=== PATIENT | male | born 1930 | race Caucasian/White ===

== ENCOUNTER 2017-10-08 02:05 | Inpatient (IN) | payer MEDICARE, OTHER ==
--- NOTE | 2017-10-08 02:35 | EDM.PDOC ---
ED HPI GENERAL MEDICAL PROBLEM - General Chief Complaint: General Stated Complaint: FEVER, FALL Time Seen by Provider: 10/08/17 02:08 Source of Information: Reports: Patient, EMS History Limitations: Reports: No Limitations - History of Present Illness INITIAL COMMENTS - FREE TEXT/NARRATIVE: Patient arrives via ambulance with weakness and fever. He told EMS that he had gotten out of bed and kind of slid to the floor but didn't fall. EMS noticed that he seemed very weak and quite warm. The patient lives with his in an assisted living in [place]. He isn't aware of having a fever previously. He felt chilled last evening and needed a sweater. He was telling about his heart in some details that sounded like confusion (eg. when he sleeps on one side he opens up his right ventricle and can tell that he needs to open up the other ventricle so he switches to lying on the other side) but otherwise doesn't display any evidence of confusion or disorientation. He takes Eliquis for A Fib. - Related Data Allergies Allergy/AdvReac Type Severity Reaction Status Date / Time No Known Drug Allergies Allergy Disorientat Verified 10/08/17 02:51 ion Home Meds: Home Meds Apixaban [Eliquis] 5 mg PO BID 10/08/17 [History] Aspirin [Adult Low Dose Aspirin EC] 81 mg PO BID 10/08/17 [History] Calcium Carb/D3/Mag AA Chelate [Coral Calcium Capsule] 1 tab PO BID 10/08/17 [ History] Cholecalciferol (Vitamin D3) [Vitamin D3] 1,000 mg PO DAILY 10/08/17 [History] Folic Acid 1 mg PO DAILY 10/08/17 [History] Furosemide [Lasix] 40 mg PO DAILY 10/08/17 [History] Metoprolol Succinate [Toprol XL] 50 mg PO DAILY 10/08/17 [History] Mv-Mn/FA/Vit K/Lycop/Lut/Zeaxa [Ocuvite Eye + Multi Tablet] 1 tab PO DAILY 10/08 [History] [place]-3 Fatty Acids [Maxepa] 1,000 mg PO DAILY 10/08/17 [History] Polyvinyl Alcohol/Povidone/Pf [Refresh Classic Eye Drops] 1 drop EARBOTH Q4HR PRN 10/08/17 [History] Potassium Chloride 20 mg PO DAILY 10/08/17 [History] Zinc 50 mg PO DAILY 10/08/17 [History] risperiDONE [Risperdal] 1 mg PO DAILY 10/08/17 [History] ED ROS GENERAL - Review of Systems Review Of Systems: See Below Constitutional: Reports: Fever, Chills, Weakness HEENT: Denies: Throat Pain, Vision Change Respiratory: Reports: Cough. Denies: Shortness of Breath Cardiovascular: Denies: Chest Pain, Lightheadedness, Syncope GI/Abdominal: Denies: Abdominal Pain, Diarrhea, Vomiting : Denies: Dysuria, Flank Pain Musculoskeletal: Reports: Joint Pain (knees sometimes) Skin: Denies: Cyanosis, Jaundice, Mottled, Pallor, Diaphoresis Neurological: Reports: Confusion (possibly). Denies: Dizziness, Headache, Seizure, Syncope, Trouble Speaking Psychiatric: Denies: Agitation, Anxiety ED EXAM, GENERAL - Physical Exam Exam: See Below Exam Limited By: No Limitations General Appearance: Alert, WD/WN, No Apparent Distress Eye Exam: Bilateral Eye: EOMI, Normal Inspection, PERRL Ears: Normal External Exam, Normal Canal, Hearing Grossly Normal, Normal TMs Nose: Normal Inspection, No Blood Throat/Mouth: Normal Inspection, Normal Lips, Normal Gums, Normal Oropharynx, Normal Voice, No Airway Compromise Head: Atraumatic, Normocephalic Neck: Normal Inspection, Supple, Non-Tender, Full Range of Motion. No: Carotid Bruit Respiratory/Chest: No Respiratory Distress, Decreased Breath Sounds (left base) , Crackles (bilat). No: Rhonchi, Wheezing, Stridor, Retractions Cardiovascular: Normal Peripheral Pulses, No Edema, No JVD, No Murmur, Irregularly Irregular Peripheral Pulses: 2+: Carotid (L), Carotid (R), Radial (L), Radial (R), Dorsalis Pedis (L), Dorsalis Pedis (R) GI/Abdominal: Normal Bowel Sounds, Soft, Non-Tender, No Organomegaly, No Distention Back Exam: No: CVA Tenderness (L), CVA Tenderness (R) Extremities: No: Normal Range of Motion (kind of stiff in knees and hips consistent with OA but PROM is pretty good with a little effort and tolerated well), Joint Swelling Neurological: Alert, Oriented, CN II-XII Intact, Normal Cognition (as we visited he seemed to be completely oriented and appropriate), No Motor/Sensory Deficits. No: Memory Loss Remote Events, Memory Loss Recent Events Psychiatric: Normal Affect, Normal Mood Skin Exam: Warm, Dry, Intact, Normal Color, No Rash Course - Vital Signs Last Recorded V/S: Last Vital Signs Temp 99.7 F 10/08/17 02:30 Pulse 95 10/08/17 02:30 Resp 25 H 10/08/17 02:30 BP 151/60 H 10/08/17 02:30 Pulse Ox 93 L 10/08/17 02:30 - Orders/Labs/Meds Orders: Active Orders 24 hr Category Date Time Status EKG Documentation Completion [RC] ASDIRECTED Care 10/08/17 02:41 Active CXR [Chest 2V] [CR] Stat Exams 10/08/17 02:40 Taken CULTURE BLOOD [BC] Stat Lab 10/08/17 02:41 Ordered CULTURE BLOOD [BC] Stat Lab 10/08/17 02:55 Received Blood Culture x2 Reflex Set [OM.PC] Stat Oth 10/08/17 02:40 Ordered EKG 12 Lead [EK] Routine Ther 10/08/17 02:40 Ordered Labs: Laboratory Tests 10/08/17 10/08/17 10/08/17 Range/Units 02:48 02:48 02:48 WBC 13.8 H (5.0-10.0) 10^3/uL RBC 4.89 (4.50-6.00) 10^6/uL Hgb 14.1 (13.0-17.0) g/dL Hct 44.9 (40.0-52.0) % MCV 91.9 (82.0-92.0) fL MCH 28.8 (27.0-31.0) pg MCHC 31.4 L (32.0-36.0) g/dL RDW 14.7 H (11.5-14.5) % Plt Count 113 L (150-300) 10^3/uL MPV 7.3 L (7.4-10.4) fL Neut % (Auto) 88.8 H (50.0-70.0) % Lymph % (Auto) 5.4 L (20.0-40.0) % [place] % (Auto) 4.8 (2.0-8.0) % Eos % (Auto) 1.0 (1.0-3.0) % Baso % (Auto) 0.0 (0.0-1.0) % Neut # (Auto) 12.3 H (2.5-7.0) 10^3/uL Lymph # (Auto) 0.7 L (1.0-4.0) 10^3/uL [place] # (Auto) 0.7 (0.1-0.8) 10^3/uL Eos # (Auto) 0.1 (0.1-0.3) 10^3/uL Baso # (Auto) 0.0 (0.0-0.1) 10^3/uL Sodium 133 L (136-145) mmol/L Potassium 4.1 (3.3-5.3) mmol/L Chloride 99 (98-115) mmol/L Carbon Dioxide 23.5 (21.0-32.0) mmol/L BUN 18 (6-25) mg/dL Creatinine 0.77 (0.51-1.17) mg/dL Est Cr Clr Drug Dosing 74.18 mL/min Estimated GFR (MDRD) > 60 mL/min Glucose 142 H (70-110) mg/dL Lactic Acid 1.4 (0.4-2.0) mmol/L Calcium 8.2 L (8.7-10.3) mg/dL - Re-Assessments/Exams Free Text/Narrative Re-Assessment/Exam: 10/08/17 04:07 WBC is 13.8 with 88% neuts. CXR shows infiltrates. Rad report indicates infiltrates in left lobe under "findings" which I noted on film, but under "impression" it says right lower lob infiltrate. I actually think he has bilobar pneumonia clinically. Discussed findings with patient and with Dr. Esposito who accepted for admission. Patient remained in stable condition throughout ER course. Departure - Departure Time of Disposition: 04:07 Disposition: Admitted As Inpatient 65 Condition: Good Clinical Impression: CAP (community acquired pneumonia) Qualifiers: Laterality: unspecified laterality Qualified Code(s): J18.9 - Pneumonia, unspecified organism - Discharge Information Forms: ED Department Discharge - My Orders Last 24 Hours: My Active Orders 10/08/17 02:40 CXR [Chest 2V] [CR] Stat Blood Culture x2 Reflex Set [OM.PC] Stat EKG 12 Lead [EK] Routine 10/08/17 02:41 EKG Documentation Completion [RC] ASDIRECTED CULTURE BLOOD [BC] Stat 10/08/17 02:55 CULTURE BLOOD [BC] Stat - Assessment/Plan Last 24 Hours: My Active Orders 10/08/17 02:40 CXR [Chest 2V] [CR] Stat Blood Culture x2 Reflex Set [OM.PC] Stat EKG 12 Lead [EK] Routine 10/08/17 02:41 EKG Documentation Completion [RC] ASDIRECTED CULTURE BLOOD [BC] Stat 10/08/17 02:55 CULTURE BLOOD [BC] Stat
[2017-10-08 03:21] LABS: CHLORIDE,CL 99 mmol/L (98-115); SODIUM,NA 133 mmol/L (136-145)
[2017-10-08] MEDS ORDERED: Levofloxacin/Dextrose 5%-Water 250 MG in Premix Bag 1 BAG IV ONE (04:00)
[2017-10-08] MEDS ORDERED: Levofloxacin/Dextrose 5%-Water 500 MG in Premix Bag 1 BAG IV ONE (04:00)
[2017-10-08] MEDS ORDERED: Acetaminophen 325 MG Tab PO PRN (04:06)
[2017-10-08] MEDS: Levofloxacin/Dextrose 5%-Water 250 MG in Premix Bag 1 BAG IV SCH (04:50)
[2017-10-08] MEDS: Levofloxacin/Dextrose 5%-Water 500 MG in Premix Bag 1 BAG IV SCH (06:07)
--- NOTE | 2017-10-08 10:39 | PCM.HP ---
H&P History of Present Illness - General Date of Service: 10/08/17 Admit Problem/Dx: Admission Diagnosis/Problem Admission Diagnosis/Problem CAP (community acquired pneumonia) due to MSSA ( methicillin sensitive Staphylococcus aureus) Source of Information: Patient History Limitations: Reports: No Limitations - History of Present Illness Initial Comments - Free Text/Narative: This elderly patient was brought by ambulance from the assisted living facility in the morning not recorded. He seemed to be very weak, warm. Patient does live with his in the assisted living center at [place]. He was having a low- grade temperature and was confused and had a near falling episode. He is taking eloquence for atrial fibrillation. Onset of Symptoms: Reports: Other (Symptoms started yesterday.) Duration of Symptoms: Reports: Day(s): Location: Reports: Chest (Reason complaint of cough and also generalized weakness.) Generalized Pain Score (Numeric/FACES): 5 - Related Data Allergies/Adverse Reactions: Allergies Allergy/AdvReac Type Severity Reaction Status Date / Time No Known Drug Allergies Allergy Disorientat Verified 10/08/17 02:51 ion Home Medications: Home Meds Apixaban [Eliquis] 5 mg PO BID 10/08/17 [History] Aspirin [Adult Low Dose Aspirin EC] 81 mg PO BID 10/08/17 [History] Calcium Carb/D3/Mag AA Chelate [Coral Calcium Capsule] 1 tab PO BID 10/08/17 [ History] Cholecalciferol (Vitamin D3) [Vitamin D3] 1,000 mg PO DAILY 10/08/17 [History] Folic Acid 1 mg PO DAILY 10/08/17 [History] Furosemide [Lasix] 40 mg PO DAILY 10/08/17 [History] Metoprolol Succinate [Toprol XL] 50 mg PO DAILY 10/08/17 [History] Mv-Mn/FA/Vit K/Lycop/Lut/Zeaxa [Ocuvite Eye + Multi Tablet] 1 tab PO DAILY 10/08 [History] [place]-3 Fatty Acids [Maxepa] 1,000 mg PO DAILY 10/08/17 [History] Polyvinyl Alcohol/Povidone/Pf [Refresh Classic Eye Drops] 1 drop EARBOTH Q4HR PRN 10/08/17 [History] Potassium Chloride 20 mg PO DAILY 10/08/17 [History] Zinc 50 mg PO DAILY 10/08/17 [History] risperiDONE [Risperdal] 1 mg PO BEDTIME 10/08/17 [History] Past Medical History HEENT History: Reports: None, Hard of Hearing, Impaired Vision, Macular Degeneration Cardiovascular History: Reports: Afib, Heart Failure, Hypertension Respiratory History: Reports: COPD, Pneumonia, Recurrent, Other (See Below) ( Complains of coughing and wheezing.) Other Respiratory History: lesion on his right lower lobe, benign Gastrointestinal History: Reports: None Genitourinary History: Reports: Prostate Disorder Musculoskeletal History: Reports: Arthritis, Other (See Below) (Complains of generalized weakness and near falls.) Neurological History: Reports: None Psychiatric History: Reports: Addiction, Anxiety Endocrine/Metabolic History: Reports: None, Vitamin D Deficiency Hematologic History: Reports: None Oncologic (Cancer) History: Reports: None, Prostate - Past Surgical History HEENT Surgical History: Reports: Cataract Surgery, Other (See Below) Other HEENT Surgeries/Procedures: macular degeneration injections to both eyes Male Surgical History: Reports: Prostate Biopsy Social & Family History - Tobacco Use Smoking Status *Q: Former Smoker Used Tobacco, but Quit: Yes Second Hand Smoke Exposure: No - Caffeine Use Caffeine Use: Reports: None, Coffee (Drinks one or 2 cups of coffee daily.) - Recreational Drug Use Recreational Drug Use: No H&P Review of Systems - Review of Systems: Review Of Systems: ROS reveals no pertinent complaints other than HPI. General: Reports: Fever (Patient has fever and chills.), Chills, Weakness HEENT: Reports: No Symptoms Pulmonary: Reports: Shortness of Breath, Wheezing (Complaints of shortness of breath, wheezing and cough.) Cardiovascular: Reports: No Symptoms Gastrointestinal: Reports: No Symptoms Genitourinary: Reports: No Symptoms Musculoskeletal: Reports: Other (Complaints of weakness. Question of falls.) Skin: Reports: No Symptoms Psychiatric: Reports: No Symptoms Neurological: Reports: No Symptoms Hematologic/Lymphatic: Reports: No Symptoms Immunologic: Reports: No Symptoms Exam - Exam Exam: See Below - Vital Signs Vital Signs: Last Vital Signs Temp 99.6 F 10/08/17 06:42 Pulse 95 10/08/17 06:42 Resp 20 10/08/17 06:42 BP 130/49 L 10/08/17 06:42 Pulse Ox 95 10/08/17 06:42 Weight: 208 lb - Exam General: Alert HEENT: PERRLA, Hearing Intact, Mucosa Moist & [place], Nares Patent, Normal Nasal Septum, Posterior Pharynx Clear, Conjunctiva Clear, EOMI, EACs Clear, TMs Clear Neck: Supple, Trachea Midline, 2 Lungs: Rales Cardiovascular: Irregular Rhythm GI/Abdominal Exam: Normal Bowel Sounds, Soft, Non-Tender, No Organomegaly, No Distention, No Abnormal Bruit, No Mass, Pelvis Stable Back Exam: Normal Inspection, Full Range of Motion, NT Extremities: Normal Inspection, Normal Range of Motion, Non-Tender, No Pedal Edema, Normal Capillary Refill Skin: Warm, Dry, Intact Neurological: Cranial Nerves Intact, Reflexes Equal Bilateral Neuro Extensive - Mental Status: Alert, Oriented x3, Normal Mood/Affect, Normal Cognition - Patient Data Result Diagrams: 10/08/17 02:48 10/08/17 02:48 *Q Meaningful Use (ADM) - VTE *Q VTE Criteria *Q: - Stroke *Q Stroke Criteria *Q: - AMI *Q AMI Criteria *Q: - Problem List (1) Atrial fibrillation SNOMED Code(s): 83191219 ICD Code: I48.91 - UNSPECIFIED ATRIAL FIBRILLATION Status: Acute Current Visit: Yes (2) Sarcoidosis SNOMED Code(s): 93281584 ICD Code: D86.9 - SARCOIDOSIS, UNSPECIFIED Status: Acute Current Visit: Yes (3) Hypertension SNOMED Code(s): 84756252 ICD Code: I10 - ESSENTIAL (PRIMARY) HYPERTENSION Status: Acute Current Visit: Yes (4) Bladder carcinoma SNOMED Code(s): 258785212 ICD Code: C67.9 - MALIGNANT NEOPLASM OF BLADDER, UNSPECIFIED Status: Acute Current Visit: Yes (5) CAP (community acquired pneumonia) SNOMED Code(s): 006378949 ICD Code: J18.9 - PNEUMONIA, UNSPECIFIED ORGANISM Status: Acute Current Visit: Yes Qualifiers: Laterality: unspecified laterality Qualified Code(s): J18.9 - Pneumonia, unspecified organism Problem List Initiated/Reviewed/Updated: Yes Orders Last 24hrs: Active Orders 24 hr Category Date Time Status Oxygen Therapy [RC] PRN Care 10/08/17 04:06 Active Up With Assistance [RC] ASDIRECTED Care 10/08/17 04:06 Active VTE/DVT Education [RC] PER UNIT ROUTINE Care 10/08/17 04:06 Active Vital Signs [RC] 0300,0700,1100,1500,1900,2300 Care 10/08/17 04:06 Active Regular Diet [DIET] Diet 10/08/17 Breakfast Active Acetaminophen [Tylenol] Med 10/08/17 04:06 Active 650 mg PO Q4H PRN Levofloxacin/Dextrose 5%-Water [Levaquin in D5W 250 MG/ Med 10/08/17 04:30 Active 50 ML] 250 mg Premix Bag 1 bag IV Q24H Levofloxacin/Dextrose 5%-Water [Levaquin in D5W 500 MG/ Med 10/08/17 04:30 Active 100 ML] 500 mg Premix Bag 1 bag IV Q24H Resuscitation Status Routine Resus Stat 10/08/17 04:04 Ordered Medication Orders Acetaminophen (Tylenol) 650 mg PO Q4H PRN PRN Reason: Pain (Mild 1-3)/fever Last Admin: 10/08/17 08:18 Dose: 650 mg Levofloxacin/Dextrose 250 mg/ (Premix) 50 mls @ 50 mls/hr IV Q24H [facility] Last Admin: 10/08/17 04:50 Dose: 50 mls/hr Levofloxacin/Dextrose 500 mg/ (Premix) 100 mls @ 100 mls/hr IV Q24H [facility] Last Admin: 10/08/17 06:07 Dose: 100 mls/hr Assessment/Plan Comment:: Committee quite pneumonia: Patient will be treated with levofloxacin as ordered. Oxygen is necessary. Cough medication and anti-ptosis as necessary. Hypertension: Stable. Continue metoprolol. Sarcoidosis: Stable. Bladder carcinoma: Stable. Atrial fibrillation stable. Continue request. Abdominal aortic aneurysm stable. Continue to monitor. Macular degeneration: Stable. Generalized arthritis stable.
[2017-10-08] MEDS: Lutein/Minerals/Vitamins A, C & E Tab PO SCH (12:51)
[2017-10-08] MEDS: Aspirin 81 MG Tab.EC PO SCH (12:51)
[2017-10-08] MEDS: Folic Acid 1 MG Tab PO SCH (12:52)
[2017-10-08] MEDS: Cholecalciferol (Vitamin D3) 1,000 Unit Tab PO SCH (12:52)
[2017-10-08] MEDS: Zinc (Zinc Gluconate) 50 MG Tab PO SCH (12:52)
[2017-10-08] MEDS: Calcium Citrate/Vitamin D3 315 MG-250 Unit Tab PO SCH ×2 (12:52→17:10)
[2017-10-08] MEDS: Fish Oil/Omega-3 Fatty Acids 1 Gm Cap PO SCH (12:52)
[2017-10-08] MEDS: Apixaban 5 MG Tab PO SCH ×2 (12:52→20:52)
[2017-10-08] MEDS: Metoprolol Succinate 50 MG Tab.ER PO SCH (12:54)
[2017-10-08] MEDS: REFRESH EYEBOTH PRN (17:45)
[2017-10-08] MEDS: risperiDONE 1 MG Tab PO SCH (20:52)
[2017-10-09] MEDS: Levofloxacin/Dextrose 5%-Water 250 MG in Premix Bag 1 BAG IV SCH (04:16)
[2017-10-09] MEDS: Levofloxacin/Dextrose 5%-Water 500 MG in Premix Bag 1 BAG IV SCH (05:30)
[2017-10-09] MEDS: Calcium Citrate/Vitamin D3 315 MG-250 Unit Tab PO SCH ×2 (09:01→17:56)
[2017-10-09] MEDS: Lutein/Minerals/Vitamins A, C & E Tab PO SCH (09:01)
[2017-10-09] MEDS: Metoprolol Succinate 50 MG Tab.ER PO SCH (09:01)
[2017-10-09] MEDS: Aspirin 81 MG Tab.EC PO SCH (09:01)
[2017-10-09] MEDS: Folic Acid 1 MG Tab PO SCH (09:01)
[2017-10-09] MEDS: Zinc (Zinc Gluconate) 50 MG Tab PO SCH (09:01)
[2017-10-09] MEDS: Cholecalciferol (Vitamin D3) 1,000 Unit Tab PO SCH (09:01)
[2017-10-09] MEDS: Apixaban 5 MG Tab PO SCH (09:01)
[2017-10-09] MEDS: Fish Oil/Omega-3 Fatty Acids 1 Gm Cap PO SCH (09:01)
--- NOTE | 2017-10-09 10:17 | PCM.PN ---
- General Info Date of Service: 10/09/17 Functional Status: Reports: Pain Controlled, Tolerating Diet, Ambulating. Denies: New Symptoms - Review of Systems General: Reports: Weakness HEENT: Reports: No Symptoms Pulmonary: Reports: Cough. Denies: Shortness of Breath, Sputum Cardiovascular: Denies: Orthopnea, PND, Edema Gastrointestinal: Reports: No Symptoms Genitourinary: Reports: No Symptoms Musculoskeletal: Reports: No Symptoms Skin: Reports: No Symptoms Neurological: Reports: No Symptoms, Difficulty Walking (uses walker with assistance) Psychiatric: Reports: No Symptoms - Patient Data Vitals - Most Recent: Last Vital Signs Temp 98 F 10/09/17 05:38 Pulse 102 H 10/09/17 09:01 Resp 24 H 10/09/17 05:38 BP 117/57 L 10/09/17 09:01 Pulse Ox 94 L 10/09/17 05:38 Weight - Most Recent: 208 lb I&O - Last 24 Hours: Intake & Output 10/08/17 10/09/17 10/09/17 22:59 06:59 14:59 Intake Total 810 100 Output Total 500 650 Balance 310 -550 Med Orders - Current: Current Medications Acetaminophen (Tylenol) 650 mg PO Q4H PRN PRN Reason: Pain (Mild 1-3)/fever Last Admin: 10/08/17 08:18 Dose: 650 mg Apixaban (Eliquis) 5 mg PO BID@0800,1700 [facility] Last Admin: 10/09/17 09:01 Dose: 5 mg Aspirin (Halfprin) 81 mg PO DAILY [facility] Last Admin: 10/09/17 09:01 Dose: 81 mg Calcium Citrate (Calcium Citrate + D) 1 tab PO BIDMEALS [facility] Last Admin: 10/09/17 09:01 Dose: 1 tab Cholecalciferol (Vitamin D3) 1,000 units PO DAILY [facility] Last Admin: 10/09/17 09:01 Dose: 1,000 units Fish Oil (Fish Oil) 1 gm PO DAILY [facility] Last Admin: 10/09/17 09:01 Dose: 1 gm Folic Acid (Folic Acid) 1 mg PO DAILY [facility] Last Admin: 10/09/17 09:01 Dose: 1 mg Levofloxacin/Dextrose 250 mg/ (Premix) 50 mls @ 50 mls/hr IV Q24H [facility] Last Admin: 10/09/17 04:16 Dose: 50 mls/hr Levofloxacin/Dextrose 500 mg/ (Premix) 100 mls @ 100 mls/hr IV Q24H [facility] Last Admin: 10/09/17 05:30 Dose: 100 mls/hr Metoprolol Succinate (Toprol Xl) 50 mg PO DAILY [facility] Last Admin: 10/09/17 09:01 Dose: 50 mg Multivitamins/Minerals (Ocuvite) 1 each PO DAILY [facility] Last Admin: 10/09/17 09:01 Dose: 1 each Ptom Refresh (Ophth Soln) 1 each EYEBOTH Q4H PRN PRN Reason: Dry Eyes Last Admin: 10/08/17 17:45 Dose: 1 each Risperidone (Risperidal) 1 mg PO BEDTIME [facility] Last Admin: 10/08/17 20:52 Dose: 1 mg Zinc Gluconate (Zinc) 50 mg PO DAILY [facility] Last Admin: 10/09/17 09:01 Dose: 50 mg Discontinued Medications Levofloxacin/Dextrose 500 mg/ (Premix) 100 mls @ 100 mls/hr IV ONETIME ONE Stop: 10/08/17 04:59 Last Admin: 10/08/17 07:25 Dose: Not Given Levofloxacin/Dextrose 250 mg/ (Premix) 50 mls @ 50 mls/hr IV ONETIME ONE Stop: 10/08/17 04:59 Last Admin: 10/08/17 07:25 Dose: Not Given - Exam Quality Assessment: No: Supplemental Oxygen General: Alert, Oriented, Cooperative, No Acute Distress Neck: No JVD Lungs: Normal Respiratory Effort, Rhonchi Cardiovascular: Irregular Rhythm. No: Tachycardia GI/Abdominal Exam: Soft Back Exam: No: CVA Tenderness (L), CVA Tenderness (R) Extremities: No: Pedal Edema Neurological: No New Focal Deficit Psy/Mental Status: Alert, Normal Affect, Normal Mood - Problem List Review Problem List Initiated/Reviewed/Updated: Yes - My Orders Last 24 Hours: My Active Orders 10/09/17 03:36 Antiembolic Devices [RC] 0900,2200 DES Hose [Antiembolic Hose] [OM.PC] Routine - Plan Plan:: Primary impression Pneumonia, RLL, CAP, qSOFA 1/3, Neutrophilia, MAP good, O2 good, continue with Levaquin however add azithromycin, BC surveillance, ICS, in chair and upright. Atrial fibrillation, chronic, CVR, patient has not been taking his Eliquis at home for several weeks due to cost and he is refusing all NOVA and coumadin. Will Stop Eliquis, [id number] Score 4-high risk. Explained to patient ASA alone not adequate coverage however he fully understands risks versus benefits. Hyponatremia, mild, CHF however no fluid overload, euvolemic, no fluid restriction for now HFpEF; Diastolic, recent dx, ECHO 06/13 with markedly dilated left atrima, no active sx now, CXR moderate cardiomegaly, On lasix at home, Currently at his home dry weight between 205-210. no shortness of breath or edema, negative JVD. Will initiate low-dose SEEMA inhibitor. monitor carefully as we may have to initiate low-dose diuretic Immunization status; completed pneumococcal vaccine Secondary impression Hypertension: Stable. Continue metoprolol, however in light of diastolic heart failure will start low-dose SEEMA inhibitor, creatinine normal Sarcoidosis: Stable. Bladder carcinoma: Stable. Abdominal aortic aneurysm stable. Continue to monitor. Macular degeneration: Stable. Generalized arthritis stable. Overall plan/disposition/discharge planning patient benefiting from ongoing acute care stay, add azithromycin, Add SEEMA inhibitor, ICS, TEDS, discontinue Eliquis,
[2017-10-09] MEDS: Azithromycin 500 MG in Sodium Chloride 0.9% 250 ML IV SCH (11:48)
[2017-10-09] MEDS: REFRESH EYEBOTH PRN (14:19)
[2017-10-09] MEDS: risperiDONE 1 MG Tab PO SCH (20:38)
[2017-10-10] MEDS: Levofloxacin/Dextrose 5%-Water 250 MG in Premix Bag 1 BAG IV SCH (04:31)
[2017-10-10] MEDS: Levofloxacin/Dextrose 5%-Water 500 MG in Premix Bag 1 BAG IV SCH (05:35)
[2017-10-10] MEDS: REFRESH EYEBOTH PRN ×2 (07:40→20:34)
[2017-10-10 08:24] LABS: CHLORIDE,CL 100 mmol/L (98-115); SODIUM,NA 132 mmol/L (136-145)
[2017-10-10] MEDS: Lutein/Minerals/Vitamins A, C & E Tab PO SCH (08:30)
[2017-10-10] MEDS: Fish Oil/Omega-3 Fatty Acids 1 Gm Cap PO SCH (08:30)
[2017-10-10] MEDS: Calcium Citrate/Vitamin D3 315 MG-250 Unit Tab PO SCH ×2 (08:30→18:02)
[2017-10-10] MEDS: Aspirin 81 MG Tab.EC PO SCH (08:31)
[2017-10-10] MEDS: Folic Acid 1 MG Tab PO SCH (08:31)
[2017-10-10] MEDS: Metoprolol Succinate 50 MG Tab.ER PO SCH (08:31)
[2017-10-10] MEDS: Cholecalciferol (Vitamin D3) 1,000 Unit Tab PO SCH (08:31)
[2017-10-10] MEDS: Zinc (Zinc Gluconate) 50 MG Tab PO SCH (08:32)
[2017-10-10] MEDS: Lisinopril 5 MG Tab PO SCH (08:34)
[2017-10-10] MEDS ORDERED: Furosemide 20 MG Tab PO ONE (10:25)
--- NOTE | 2017-10-10 10:26 | PCM.PN ---
- General Info Date of Service: 10/10/17 Subjective Update: Patient is feeling much better, no shortness of breath, slept well throughout the night without extra pillows, no PND, no orthopnea. No nausea vomiting or night sweats. Denies cough. Nurses are reporting tremendous improvement since admission ambulates with walker. Functional Status: Reports: Pain Controlled, Tolerating Diet, Ambulating ( Ambulating with walker with some assistance), Incentive Spirometry. Denies: New Symptoms - Review of Systems General: Reports: Weakness, Appetite. Denies: Fever, Malaise, Chills, Night Sweats HEENT: Reports: No Symptoms Pulmonary: Reports: No Symptoms Cardiovascular: Denies: Chest Pain, Palpitations, Orthopnea, PND, Edema Gastrointestinal: Reports: Constipation Genitourinary: Reports: No Symptoms Musculoskeletal: Reports: No Symptoms Skin: Reports: No Symptoms Neurological: Reports: Pre-Existing Deficit, Difficulty Walking (Uses walker here however does not use walker at home). Denies: Confusion Psychiatric: Reports: No Symptoms - Patient Data Vitals - Most Recent: Last Vital Signs Temp 97.9 F 10/10/17 06:04 Pulse 92 10/10/17 08:31 Resp 26 H 10/10/17 02:53 BP 133/80 10/10/17 08:34 Pulse Ox 92 L 10/10/17 06:04 Weight - Most Recent: 208 lb I&O - Last 24 Hours: Intake & Output 10/09/17 10/10/17 10/10/17 22:59 06:59 14:59 Intake Total 425 200 Output Total 950 400 Balance -525 -200 Lab Results Last 24 Hours: Laboratory Results - last 24 hr 10/10/17 10/10/17 Range/Units 07:10 07:10 WBC 9.1 (5.0-10.0) 10^3/uL RBC 4.44 L (4.50-6.00) 10^6/uL Hgb 13.0 (13.0-17.0) g/dL Hct 40.8 (40.0-52.0) % MCV 91.8 (82.0-92.0) fL MCH 29.3 (27.0-31.0) pg MCHC 31.9 L (32.0-36.0) g/dL RDW 14.3 (11.5-14.5) % Plt Count 95 L (150-300) 10^3/uL MPV 7.7 (7.4-10.4) fL Neut % (Auto) 79.7 H (50.0-70.0) % Lymph % (Auto) 11.9 L (20.0-40.0) % Dunn % (Auto) 6.5 (2.0-8.0) % Eos % (Auto) 1.3 (1.0-3.0) % Baso % (Auto) 0.6 (0.0-1.0) % Neut # (Auto) 7.2 H (2.5-7.0) 10^3/uL Lymph # (Auto) 1.1 (1.0-4.0) 10^3/uL Dunn # (Auto) 0.6 (0.1-0.8) 10^3/uL Eos # (Auto) 0.1 (0.1-0.3) 10^3/uL Baso # (Auto) 0.1 (0.0-0.1) 10^3/uL Sodium 132 L (136-145) mmol/L Potassium 4.1 (3.3-5.3) mmol/L Chloride 100 (98-115) mmol/L Carbon Dioxide 26.9 (21.0-32.0) mmol/L BUN 16 (6-25) mg/dL Creatinine 0.77 (0.51-1.17) mg/dL Est Cr Clr Drug Dosing 69.79 mL/min Estimated GFR (MDRD) > 60 mL/min Glucose 102 (70-110) mg/dL Calcium 8.0 L (8.7-10.3) mg/dL Med Orders - Current: Current Medications Acetaminophen (Tylenol) 650 mg PO Q4H PRN PRN Reason: Pain (Mild 1-3)/fever Last Admin: 10/08/17 08:18 Dose: 650 mg Aspirin (Halfprin) 81 mg PO DAILY [facility] Last Admin: 10/10/17 08:31 Dose: 81 mg Calcium Citrate (Calcium Citrate + D) 1 tab PO BIDMEALS [facility] Last Admin: 10/10/17 08:30 Dose: 1 tab Cholecalciferol (Vitamin D3) 1,000 units PO DAILY [facility] Last Admin: 10/10/17 08:31 Dose: 1,000 units Fish Oil (Fish Oil) 1 gm PO DAILY [facility] Last Admin: 10/10/17 08:30 Dose: 1 gm Folic Acid (Folic Acid) 1 mg PO DAILY [facility] Last Admin: 10/10/17 08:31 Dose: 1 mg Levofloxacin/Dextrose 250 mg/ (Premix) 50 mls @ 50 mls/hr IV Q24H [facility] Last Admin: 10/10/17 04:31 Dose: 50 mls/hr Levofloxacin/Dextrose 500 mg/ (Premix) 100 mls @ 100 mls/hr IV Q24H [facility] Last Admin: 10/10/17 05:35 Dose: 100 mls/hr Azithromycin 500 mg/ Sodium (Chloride) 250 mls @ 250 mls/hr IV Q24H [facility] Last Admin: 10/09/17 11:48 Dose: 250 mls/hr Lisinopril (Prinivil) 5 mg PO DAILY [facility] Last Admin: 10/10/17 08:34 Dose: 5 mg Metoprolol Succinate (Toprol Xl) 50 mg PO DAILY [facility] Last Admin: 10/10/17 08:31 Dose: 50 mg Multivitamins/Minerals (Ocuvite) 1 each PO DAILY [facility] Last Admin: 10/10/17 08:30 Dose: 1 each Ptom Refresh (Ophth Soln) 1 each EYEBOTH Q4H PRN PRN Reason: Dry Eyes Last Admin: 10/10/17 07:40 Dose: 1 each Risperidone (Risperidal) 1 mg PO BEDTIME [facility] Last Admin: 10/09/17 20:38 Dose: 1 mg Zinc Gluconate (Zinc) 50 mg PO DAILY [facility] Last Admin: 10/10/17 08:32 Dose: 50 mg Discontinued Medications Apixaban (Eliquis) 5 mg PO BID@0800,1700 [facility] Last Admin: 10/09/17 09:01 Dose: 5 mg Levofloxacin/Dextrose 500 mg/ (Premix) 100 mls @ 100 mls/hr IV ONETIME ONE Stop: 10/08/17 04:59 Last Admin: 10/08/17 07:25 Dose: Not Given Levofloxacin/Dextrose 250 mg/ (Premix) 50 mls @ 50 mls/hr IV ONETIME ONE Stop: 10/08/17 04:59 Last Admin: 10/08/17 07:25 Dose: Not Given - Exam Quality Assessment: No: Supplemental Oxygen General: Alert, Oriented, Cooperative. No: No Acute Distress Neck: No JVD Lungs: Crackles (Crackles right base, patient states chronic), Rales. No: Decreased Breath Sounds, Rhonchi, Rub Cardiovascular: Regular Rate, Irregular Rhythm GI/Abdominal Exam: Soft (Male) Exam: Deferred Extremities: No Pedal Edema (DES stockings) Peripheral Pulses: 2+: Radial (L), Radial (R) Skin: Warm, Dry, Intact Neurological: No New Focal Deficit Psy/Mental Status: Alert, Normal Affect, Normal Mood - Problem List Review Problem List Initiated/Reviewed/Updated: Yes - My Orders Last 24 Hours: My Active Orders 10/09/17 10:33 Incentive Spirometry [RT Incentive Spirometry] [RC] ASDIRECTED 10/09/17 10:35 Antiembolic Devices [RC] 0900,2100 DES Hose Substitution [Sequential Compression Device] [OM.PC] Routine 10/09/17 11:00 Azithromycin [Zithromax] 500 mg Sodium Chloride 0.9% [Normal Saline] 250 ml IV Q24H 10/10/17 09:00 Lisinopril [Prinivil] 5 mg PO DAILY - Plan Plan:: Primary impression Update today: Patient is feeling much better, no shortness of breath, slept well throughout the night without extra pillows, no PND, no orthopnea. No nausea vomiting or night sweats. Denies cough. Nurses are reporting tremendous improvement since admission ambulates with walker. Denies use a walker at home Primary impression Pneumonia, RLL, CAP, clinically improving, no fevers or shortness of breath, qSOFA 0/3, Neutrophilia resolving, MAP good, O2 good, continue with Levaquin, added add azithromycin yesterday, BC surveillance, ICS, in chair and upright. Atrial fibrillation, chronic, CVR, patient has not been taking his Eliquis at home for several weeks due to cost and he is refusing all NOVA and coumadin. This was discontinued yesterday. [id number] Score 4-high risk. Explained to patient ASA alone not adequate coverage however he fully understands risks versus benefits, he will go home on monotherapy aspirin Hyponatremia, mild, CHF however no fluid overload, euvolemic, no fluid restriction for now HFpEF; Diastolic, recent dx, ECHO 06/13 with markedly dilated left atrima, no active sx now, CXR moderate cardiomegaly, On lasix at home, Currently at his home dry weight between 205-210. no shortness of breath or edema, negative JVD. Tolerating initial low-dose SEEMA inhibitor-should increase every 2 weeks to maximum tolerable levels. monitor carefully as we may have to initiate low- dose diuretic Immunization status; completed pneumococcal vaccine Secondary impression Hypertension: Stable. Continue metoprolol, however in light of diastolic heart failure will start low-dose SEEMA inhibitor, creatinine normal Sarcoidosis: Stable. Bladder carcinoma: Stable. Abdominal aortic aneurysm stable. Continue to monitor. Macular degeneration: Stable. Generalized arthritis stable. Overall plan/disposition/discharge planning Physical therapy evaluated patient and due to weakness he will qualify for residential. Likely will be discharged from acute care tomorrow at [facility] to receive physical therapy at correction. New meds this hospital admission including SEEMA inhibitor, recommend increasing every couple weeks to maximal tolerable levels.
[2017-10-10] MEDS ORDERED: PSYLLIUM HUSK PO PRN (10:36)
[2017-10-10] MEDS: Azithromycin 500 MG in Sodium Chloride 0.9% 250 ML IV SCH (11:07)
[2017-10-10] MEDS: risperiDONE 1 MG Tab PO SCH (20:34)
[2017-10-11] MEDS: Levofloxacin/Dextrose 5%-Water 250 MG in Premix Bag 1 BAG IV SCH (04:32)
[2017-10-11] MEDS: Levofloxacin/Dextrose 5%-Water 500 MG in Premix Bag 1 BAG IV SCH (05:35)
[2017-10-11 07:48] LABS: CHLORIDE,CL 101 mmol/L (98-115); SODIUM,NA 135 mmol/L (136-145)
[2017-10-11] MEDS: Fish Oil/Omega-3 Fatty Acids 1 Gm Cap PO SCH (08:33)
[2017-10-11] MEDS: REFRESH EYEBOTH PRN (08:33)
[2017-10-11] MEDS: Zinc (Zinc Gluconate) 50 MG Tab PO SCH (08:34)
[2017-10-11] MEDS: Lutein/Minerals/Vitamins A, C & E Tab PO SCH (08:34)
[2017-10-11] MEDS: Calcium Citrate/Vitamin D3 315 MG-250 Unit Tab PO SCH (08:34)
[2017-10-11] MEDS: Cholecalciferol (Vitamin D3) 1,000 Unit Tab PO SCH (08:34)
[2017-10-11] MEDS: Metoprolol Succinate 50 MG Tab.ER PO SCH (08:35)
[2017-10-11] MEDS: Aspirin 81 MG Tab.EC PO SCH (08:35)
[2017-10-11] MEDS: Folic Acid 1 MG Tab PO SCH (08:35)
[2017-10-11] MEDS: Lisinopril 5 MG Tab PO SCH (08:42)
--- NOTE | 2017-10-11 13:07 | PN ---
10/08/2017PATIENT NAME: DALTON BIRD PATIENT PROFILE: The patient is an 86-year-old gentleman from [place], [place]. He lives in an assisted living facility along with his . The patient present to the emergency room yesterday because of weakness and fever. He was brought by ambulance. He was noted to be quite weak and warm. He felt chilled last evening and told his he needed a sweater. He kept yelling about his heart also. He seemed to be somewhat confused. At the time of his admission to the emergency room, he did not appear to be confused. PAST MEDICAL HISTORY: Includes sarcoidosis, bladder cancer, macular degeneration, hypertension, essential, osteoarthritis, posttraumatic stress disorder, obesity, atrial fibrillation, long-term use of anticoagulants, and abdominal aortic aneurysm. ALLERGIES: None known. HEALTH MAINTENANCE: The patient has had a tetanus vaccine in 1949. Lipid screening in 2017. Diabetes screening to be performed in 2019. He completed his zoster vaccine, pneumonia vaccine, influenza vaccine. His PSA is excluded. SOCIAL HISTORY: He lives with his in the assisted living center in [place], [place]. Otherwise, no other significant family history. PAST SURGICAL HISTORY: Includes inguinal hernia repair on the right side, tonsillectomy, cystoscopy in 2006, TURP prostate in 2004, colonoscopy in 2012, EGD in 2002, cataract extraction on February 2007, mediastinoscopy and biopsy of cervical in 2010, TUR bladder neck in 2010, and bronchoscopy in 2015. MEDICATIONS: 1. Fowler-3 fatty acids. 2. Fish oil one tablet daily. 3. Multivitamin tablets one tablet daily. 4. Folic acid 1 mg daily. 5. Zinc 150 mg daily. 6. Calcium, magnesium, vitamin D; 500 mg calcium, 250 mg magnesium; and vitamin D 200 units daily. 7. Aspirin 81 mg enteric-coated daily. 8. Vitamin D3. 9. Cholecalciferol 1000 units daily. 10.Metoprolol, Toprol-XL 50 mg SR one tablet daily. 11.Risperidone one tablet once a day. SIGNIFICANT OTHER HISTORY: The patient was a small former smoker, quit many years ago. He had a 27 pack years of smoking. Smokeless tobacco never used. Alcohol none. The patient also has a history of sarcoidosis. REVIEW OF SYSTEMS: HEAD AND NECK: No complaints. EYES, EARS, NOSE, THROAT: No complaints. GENERAL: Complains of weakness. CHEST: Complains of coughing and slight discomfort. HEART: No complaints of tachycardia or pedal edema. ABDOMEN: No complaints. Neurologic: No complaints. MUSCULOSKELETAL: Complains of weakness. NEUROLOGIC: No complaints. HEMATOLOGICAL: No complaints. PHYSICAL EXAMINATION: GENERAL: An elderly patient is in no immediate distress. VITAL SIGNS: Blood pressure is 140/80, temperature is normal, pulse is 84, respirations 16. HEAD: Normocephalic. EYES: Arcus senilis. ENT: Negative. NECK: Supple. Full range of motion. Trachea midline. LUNGS: Crackles bilaterally. HEART: Regular rhythm. No thrills or murmurs. ABDOMEN: Soft. No masses. No tenderness. EXTREMITIES: Normal. No pitting edema. No weakness. NEUROLOGIC: Socially intact. RECTAL: Deferred at this time. FINAL DIAGNOSES: 1. Possible right or bilateral pneumonia. 2. Confusion. PLAN: 1. The patient will be admitted to the hospital and started on IV levofloxacin. His vital signs will be carefully monitored for any further deterioration of his neurological status. 2. Hypertension, stable. 3. Bladder cancer, stable. 4. Atrial fibrillation. The patient will be continued on his Eliquis. 5. Osteoarthritis, stable. 6. Posttraumatic stress disorder, stable. 7. Aortic aneurysm, stable. 8. Sarcoidosis, stable. /[id number]/MODL
--- NOTE | 2017-10-12 08:15 | DISCH ---
FINAL DIAGNOSES: 1. Pneumonia, RLL, CAP, sputum cx unattainable, DC on Abx 2. Atrial fibrillation, chronic, CVR; Refusing Eliquis and other NOVA He is also refusing Coumadin. On ASA, [id number] high 4 3. Hyponatremia, mild congestive heart failure related, no fluid restriction. 4. HFpEF, diastolic, initiated low-dose SEEMA inhibitor. At Dry Wt. Lasix 5. Hypertension, which is stable. 6. Sarcoidosis, stable. 7. Bladder carcinoma history, stable. 8. Abdominal aortic aneurysm, stable. 9. Macular degeneration, stable. 10.Generalized arthritis, stable. 11.Depression, which is mild. BRIEF HISTORY: This patient was brought in by ambulance from assisted living facility. In the morning of admission, he seemed to be quite weak. He lives with his in assisted living facility in [place], [place]. He had a low-grade temperature. He was confused with a near fall episode, so he was admitted and it was noted for him to have right lower lobe pneumonia. HOSPITAL COURSE: Hospital course went well. He had a white count slightly elevated at 13.8 thousand with a neutrophilia of 88.8, it reduced down to normal neutrophils below 70% on discharge. He did have some low sodium level, however, this normalized to 135. Upon discharge, potassium 4.4. BUN and creatinine normal. Lactic acid on admission 1.4. BNP 287. The patient was started on antibiotics of Levaquin. I also added aminoglycoside to his treatment regimen. He never became hemodynamically unstable. We were nearly able to get a sputum culture. He improved clinically each day. He performed greatly on his incentive spirometer. Anaerobic blood cultures were negative x3 days. Temperature maximum in the hospital was 99.6 that was early on admission. He does have chronic atrial fibrillation, however, his rate was well controlled on his medication record. On admission, it showed that he was on Eliquis. However, the patient stated he had refused this due to cost. Long conversation, risk versus benefit. He is also refusing all other novel anticoagulants due to cost. He is also refusing Coumadin. He would rather be on aspirin only. Risks versus benefit were explained to the patient. I did start the patient on low- dose SEEMA inhibitor 5 mg p.o. daily due to his heart failure, echocardiogram was reviewed back in May, this is a new medication for him. Physical therapy did evaluate the patient, and he did have some gait disturbance with the use of a walker, which is new to him. He was not using a walker at home. He will qualify for physical therapy at long-term care. Immunization Status, completed pneumococcal vaccine. DISCHARGE MEDICATIONS: 1. Levaquin 750 mg p.o. daily x5 days. 2. Eliquis, (was on home meds but pt not taking so discontinued. 3. Lasix 40 mg daily along with K+ supplementation. DISPOSITION: The patient will be discharged from [facility] from acute care. He will be sent to [facility] for physical therapy. FOLLOW-UP RECOMMENDATIONS: Consider titrating SEEMA inhibitor every two weeks toward maximum tolerable levels. Hopefully, he can reach his 30 mg daily. Nurses to report any shortness of breath, weight gain more than 5 pounds per week, edema, or any tachycardia. /[id number]/MODL MTDD
== END 2017-10-11 10:30 | DRG 194 ==
LOC: KA.ED 02:05 → KA.MS 04:00
PROVIDERS: ADMIT Family Medicine; ATTEND Family Medicine
DX: J18.1 Lobar pneumonia, unspecified organism (principal); R41.0 Disorientation, unspecified; I48.91 Unspecified atrial fibrillation; Z79.899 Other long term (current) drug therapy; E87.1 Hypo-osmolality and hyponatremia; I50.30 Unspecified diastolic (congestive) heart failure; I48.2 Chronic atrial fibrillation; I10 Essential (primary) hypertension; D86.9 Sarcoidosis, unspecified; I71.4 Abdominal aortic aneurysm, without rupture; H35.30 Unspecified macular degeneration; M19.90 Unspecified osteoarthritis, unspecified site; F32.9 Major depressive disorder, single episode, unspecified; C67.9 Malignant neoplasm of bladder, unspecified; Z87.891 Personal history of nicotine dependence
CPT/HCPCS: 36415; 71046; 80048; 83605; 83880; 85025; 87040; 93005; 97162-GP; 99285; A9270-GY; J0456; J1956; J7050